=== PATIENT | female | born 1995 | race Caucasian/White ===

== ENCOUNTER 2021-12-18 17:31 | Emergency (ER) | payer OTHER ==
[2021-12-18 19:51] LABS: HEMOGLOBIN 14.4 gm/dl (12.3-15.3); RED BLOOD COUNT 4.93 M/UL (4.00-5.10); WHITE BLOOD COUNT 6.9 K/UL (4.5-11.0)
[2021-12-18 20:18] LABS: BUN/CREATININE RATIO 12 (0-10)
[2021-12-20 08:14] LABS: HBSAG SCREEN Negative (Negative); HCV AB 0.3 (0.0-0.9); HEP A AB, IGM Negative (Negative); HEP B CORE AB, IGM Negative (Negative); HIV AB/P24 AG SCREEN Non Reactive (Non Reactive)
[2021-12-20 16:12] LABS: TREPONEMA PALLIDUM ANTIBODIES Non Reactive (Non Reactive)
== END 2021-12-18 21:00 | disposition home or self-care (01) ==
LOC: ER1 17:31
PROVIDERS: Family Medicine
DX: T74.21XA Adult sexual abuse, confirmed, initial encounter (principal); I10 Essential (primary) hypertension; R10.9 Unspecified abdominal pain; Y07.03 Male partner, perpetrator of maltreatment and neglect
CPT/HCPCS: 80053; 80074; 81001; 83690; 84703; 85025; 86780; 87086; 87210; 87389; 99284